=== PATIENT | female | born 1965 | race African-American/Black ===

== ENCOUNTER 2017-12-26 21:58 | Emergency (ER) | payer BC ==
[~2017-12-26] VITALS: Ht 160 cm; Wt 77.1 kg
[2017-12-26 22:03] VITALS: BP 160/90
[2017-12-26] MEDS ORDERED: ONDANSETRON 4 MG TAB.RAPDIS SL ONE (22:30)
[2017-12-26] MEDS ORDERED: DIAZEPAM 10 MG TABLET PO ONE (22:30)
[2017-12-26] MEDS ORDERED: HYDROCODONE/APAP 10/325MG 1 EA TABLET PO ONE (22:30)
[2017-12-26] MEDS ORDERED: KETOROLAC TROMETHAMINE INJ 60 MG/2 ML VIAL IM ONE (22:30)
--- NOTE | 2017-12-26 22:33 | NUR ---
PATIENT'S NEIGHBOR [facility] STATES SHE WILL TRANSPORT PATIENT UPON DISCHARGE. CONTACT [facility] [phone] PATIENT'S HOUSING HAS MANY STAIRS WILL REQUIRE ASSISTANCE LIFTING PATIENT.
[2017-12-26] MEDS ORDERED: KETOROLAC TROMETHAMINE INJ 30 MG/ML VIAL ONE (22:43)
[2017-12-26] MEDS ORDERED: ONDANSETRON 4 MG TAB.RAPDIS ONE (22:43)
[2017-12-26] MEDS ORDERED: HYDROCODONE/APAP 10/325MG 1 EA TABLET ONE (22:44)
[2017-12-26] MEDS ORDERED: DIAZEPAM 5 MG TABLET ONE (22:44)
== END 2017-12-26 23:58 | disposition home or self-care (01) ==
LOC: ER 22:09
DX: S39.012A Strain of muscle, fascia and tendon of lower back, initial encounter (principal); I10 Essential (primary) hypertension; Z85.3 Personal history of malignant neoplasm of breast; Z98.890 Other specified postprocedural states; X50.9XXA Other and unspecified overexertion or strenuous movements or postures, initial encounter; Y93.89 Activity, other specified; Y92.810 Car as the place of occurrence of the external cause; Y99.8 Other external cause status
CPT/HCPCS: 96372; 99284; A4606; J1885; Q0162; Z7610

== ENCOUNTER 2018-02-27 00:58 | Emergency (ER) | payer BC ==
--- NOTE | 2018-02-27 01:17 | NUR ---
ATTEMPTED TO CALL PATIENT BACK BUT NO RESPONSE. WILL ATTEMPT AGAIN
== END 2018-02-27 01:30 | disposition left against medical advice (07) ==
LOC: ER 00:59
DX: H57.10 Ocular pain, unspecified eye (principal); Z53.21 Procedure and treatment not carried out due to patient leaving prior to being seen by health care provider

== ENCOUNTER 2018-05-03 21:06 | Emergency (ER) | payer BC ==
[~2018-05-03] VITALS: Ht 162.6 cm; Wt 77.1 kg
--- NOTE | 2018-05-03 21:10 | NUR ---
pt bib self. comp of having a "headache and blurred vision". referred by PMD for a checkup. no sob noted. no neuro deficits noted. pt aox4. ambulatory w.steady gait. awaiting md daugherty.
[2018-05-03] MEDS ORDERED: diphenhydrAMINE HCL 50 MG/ML VIAL ONE (22:13)
[2018-05-03] MEDS ORDERED: KETOROLAC TROMETHAMINE INJ 30 MG/ML VIAL ONE (22:13)
[2018-05-03] MEDS ORDERED: METOCLOPRAMIDE HCL 10 MG/2 ML VIAL ONE (22:13)
[2018-05-03 22:18] LABS: BASOPHILS % (AUTO) 0.4 % (0.0-2.0); EOSINOPHILS % (AUTO) 1.7 % (0.0-6.0); HEMATOCRIT 42 % (33-45); LYMPHOCYTES # (AUTO) 1.4 /CMM (0.8-4.8); LYMPHOCYTES % (AUTO) 22.8 % (20.0-44.0); MEAN CORPUSCULAR HGB CONC 33 g/dl (31.0-36.0); MEAN CORPUSCULAR VOLUME 96 fL (82-100); MONOCYTES # (AUTO) 0.4 /CMM (0.1-1.30); NEUTROPHILS # (AUTO) 4.3 /CMM (1.8-8.9); NEUTROPHILS % (AUTO) 68.1 % (43.0-81.0); PLATELET COUNT (AUTO) 270 /CMM (150-450); RED BLOOD CELL COUNT(AUTO) 4.41 MIL/uL (4.0-5.2); WHITE BLOOD COUNT (AUTO) 6.3 K/uL (4.3-11.0)
[2018-05-03 22:23] LABS: CALCIUM, SERUM 9.6 mg/dL (8.5-10.1); CREATININE 1.1 mg/dL (0.6-1.3); POTASSIUM 3.2 mmol/L (3.5-5.1)
[2018-05-03 22:29] LABS: ALBUMIN 3.5 g/dL (3.4-5.0); BILIRUBIN,DIRECT 0.2 mg/dL (0.0-0.2); BILIRUBIN,TOTAL 0.9 mg/dL (0.2-1.0); TOTAL PROTEIN, SERUM 6.8 g/dL (6.4-8.2)
[2018-05-03] MEDS ORDERED: diphenhydrAMINE HCL 50 MG/ML VIAL IV ONE (22:30)
[2018-05-03] MEDS ORDERED: KETOROLAC TROMETHAMINE INJ 30 MG/ML VIAL IV ONE (22:30)
[2018-05-03] MEDS ORDERED: METOCLOPRAMIDE HCL 10 MG/2 ML VIAL IV ONE (22:30)
[2018-05-03] MEDS ORDERED: IV NS 0.9% 1,000 ML BAG IV ONE (22:30)
--- NOTE | 2018-05-03 22:30 | NUR ---
pt taken to radiology.
[2018-05-03] MEDS ORDERED: POTASSIUM CHLORIDE 20 MEQ TAB.PRT.SR PO ONE (23:51)
[2018-05-04] MEDS ORDERED: POTASSIUM CHLORIDE 20 MEQ TAB.PRT.SR PO ONE
[2018-05-04 00:27] VITALS: BP 128/88
== END 2018-05-04 00:29 | disposition home or self-care (01) ==
LOC: ER 21:09
DX: R51 Headache (principal); I10 Essential (primary) hypertension; M54.9 Dorsalgia, unspecified; Z98.890 Other specified postprocedural states; Z85.3 Personal history of malignant neoplasm of breast; Z60.2 Problems related to living alone
CPT/HCPCS: 36415; 70450; 80048; 80076; 85025; 96374; 96375; 99284; A4606; J1200; J1885; J2765; J7030